=== PATIENT | female | born 1990 | race Hispanic/Latino ===

== ENCOUNTER 2025-06-09 11:45 | Inpatient (IN) | payer BC ==
[2025-06-09] MEDS ORDERED: Ondansetron PF 4 MG/2 ML Vial IVP PRN ×4 (12:46→17:16)
[2025-06-09] MEDS ORDERED: Famotidine/PF 20 mg/2ml Vial SLOW IVP PRN (12:46)
[2025-06-09] MEDS ORDERED: Bicitra 30 ML UDCUP PO PRN (12:46)
[2025-06-09] MEDS ORDERED: hydrALAZINE 20 MG/ML VIAL SLOW IVP PRN ×2 (12:49→17:04)
[2025-06-09] MEDS ORDERED: Calcium Gluc 4.6 MEQ/10 ML (100 MG/ML) SLOW IVP PRN (12:49)
[2025-06-09 13:11] LABS: #Basophils Less than 0.03 10x3/uL (0.0-0.2); #Eosinophils Less than 0.03 10x3/uL (0.0-0.5); #Monocytes 0.38 10x3/uL (0.0-1.1); #Neutrophils 4.81 10x3/uL (1.5-8.4); %Basophils 0.3 % (0.0-2.0); %Eosinophils 0.1 % (0.0-6.0); %Lymphocytes 30.8 % (18.0-47.0); %Monocytes 5.0 % (0.0-10.0); %Neutrophils 63.0 % (40.0-75.0); Hematocrit 29.2 % (34.9-44.5); Hemoglobin 10.0 g/dL (12.0-15.5); Mean Corpuscular Hemoglobin 27.5 pg (27.0-33.0); Mean Corpuscular Volume 80.4 fL (81.6-98.3); Platelet Count 221 10x3/uL (150-450); Red Blood Cell (RBC) Count 3.63 10x6/uL (3.90-5.03); White Blood Cell (WBC) Count 7.63 10x3/uL (3.5-10.5)
[2025-06-09] MEDS: hydrALAZINE 20 MG/ML VIAL SLOW IVP PRN ×2 (13:20→14:26)
[2025-06-09] MEDS: Magnesium Sulfate 20 gm/500 ml 20 GM/500 ML BAG IVPB SCH (13:25)
[2025-06-09 13:27] LABS: ALT (SGPT) 17 U/L (Less than 34); AST (SGOT) 28 U/L (11-34); Albumin 2.8 g/dL (3.1-4.5); Alkaline Phosphatase 94 U/L (40-110); Anion Gap 15 mmol/L (10-20); BUN (Urea Nitrogen) 17 mg/dL (7.0-18.7); Bilirubin, Total 0.1 mg/dL (0.3-1.2); Calc. Creatinine Clearance 0 mL/min (70-130); Calcium 9.0 mg/dL (7.8-10.44); Carbon Dioxide 17 mmol/L (22-29); Chloride 107 mmol/L (98-107); Globulin 3.9 g/dL (2.4-3.5); Glucose 192 mg/dL (70-105); Potassium 4.0 mmol/L (3.5-5.1); Sodium 135 mmol/L (136-145)
[2025-06-09 13:45] LABS: Syphilis Antibody Index 0.06 S/CO (<1.00 Non-Reactive)
[2025-06-09 13:46] LABS: Hep B Surf Ag - L&D Non-Reactive S/CO (NonReactive)
[2025-06-09 13:56] LABS: INR-International Normal Ratio 0.9; PTT 22.7 sec (22.0-33.0); Prothrombin Time 10.1 sec (9.5-12.1)
[2025-06-09 15:51] VITALS: BMI 38.7
[2025-06-09 17:00] LABS: Analyzer IN Cardio CS NICU; RapidComm Collect By OR NURSE
[2025-06-09 17:02] LABS: Analyzer IN Cardio CS NICU; RapidComm Collect By OR NURSE; pH (Cord, venous) 7.324 (7.250-7.350)
[2025-06-09] MEDS ORDERED: Acetaminophen 325 MG TAB PO PRN (17:04)
[2025-06-09] MEDS ORDERED: diphenhydrAMINE 25 MG CAP PO PRN (17:04)
[2025-06-09] MEDS ORDERED: diphenhydrAMINE 50 MG/ML VIAL IVP PRN (17:16)
[2025-06-09] MEDS ORDERED: Meperidine HCl/PF 25 MG (1 mL) VIAL SLOW IVP PRN (17:16)
[2025-06-09] MEDS ORDERED: Ketorolac Tromethamine 30 MG (1 mL) VIAL IVP SCH (17:30)
[2025-06-09] MEDS ORDERED: Dextrose 50% Abboject 50 ML SYRINGE SLOW IVP PRN (17:30)
[2025-06-09] MEDS ORDERED: Glucagon 1 MG/ML KIT IM PRN (17:30)
[2025-06-09] MEDS ORDERED: Communication Order-Pharmacy FS SCH (17:30)
[2025-06-09] MEDS: Oxytocin 30 units/NS 500 ML 500 ML IV SCH (18:19)
[2025-06-10 05:03] LABS: #Basophils Less than 0.03 10x3/uL (0.0-0.2); #Eosinophils Less than 0.03 10x3/uL (0.0-0.5); #Monocytes 0.69 10x3/uL (0.0-1.1); #Neutrophils 9.15 10x3/uL (1.5-8.4); %Basophils 0.1 % (0.0-2.0); %Eosinophils 0.0 % (0.0-6.0); %Lymphocytes 20.2 % (18.0-47.0); %Monocytes 5.6 % (0.0-10.0); %Neutrophils 73.6 % (40.0-75.0); Hematocrit 28.5 % (34.9-44.5); Hemoglobin 9.7 g/dL (12.0-15.5); Mean Corpuscular Hemoglobin 27.5 pg (27.0-33.0); Mean Corpuscular Volume 80.7 fL (81.6-98.3); Platelet Count 215 10x3/uL (150-450); Red Blood Cell (RBC) Count 3.53 10x6/uL (3.90-5.03); White Blood Cell (WBC) Count 12.42 10x3/uL (3.5-10.5)
[2025-06-10] MEDS ORDERED: Meperidine HCl/PF 25 MG (1 mL) VIAL IM PRN (05:30)
[2025-06-10 05:34] LABS: ALT (SGPT) 18 U/L (Less than 34); AST (SGOT) 31 U/L (11-34); Albumin 2.3 g/dL (3.1-4.5); Alkaline Phosphatase 86 U/L (40-110); Anion Gap 13 mmol/L (10-20); BUN (Urea Nitrogen) 14 mg/dL (7.0-18.7); Bilirubin, Total 0.2 mg/dL (0.3-1.2); Calc. Creatinine Clearance 183 mL/min (70-130); Calcium 7.1 mg/dL (7.8-10.44); Carbon Dioxide 18 mmol/L (22-29); Chloride 106 mmol/L (98-107); Globulin 3.4 g/dL (2.4-3.5); Glucose 131 mg/dL (70-105); Magnesium 6.1 mg/dL (1.6-2.6); Potassium 4.3 mmol/L (3.5-5.1); Sodium 133 mmol/L (136-145)
[2025-06-10] MEDS: Ketorolac Tromethamine 30 MG (1 mL) VIAL IVP PRN (11:08)
[2025-06-10] MEDS: Acetaminophen 500 MG TAB PO PRN (11:08)
[2025-06-10] MEDS: HYDROcodone/Acetaminophen 5/325 mg Tablet PO PRN (17:24)
[2025-06-10] MEDS: metFORMIN 500 MG TAB PO SCH (17:24)
[2025-06-10] MEDS: Ibuprofen 800 MG TAB PO SCH (21:20)
[2025-06-11] MEDS: Oxytocin 30 units/NS 500 ML 500 ML ONE (15:11)
[2025-06-11] MEDS: Carboprost 250 MCG/ML AMP ONE (15:11)
[2025-06-11] MEDS: Dexamethasone 10 MG/ML VIAL ONE (15:11)
[2025-06-11] MEDS: Tranexamic Acid 1,000 MG/10 ML VIAL ONE (15:11)
[2025-06-11] MEDS: Oxytocin 10 UNITS/ML VIAL ONE (15:11)
[2025-06-11] MEDS: Ondansetron PF 4 MG/2 ML Vial ONE (15:11)
[2025-06-11] MEDS: PHENYLEPHRINE-NS 100 MCG/ML 10 ML SYRINGE ONE (15:12)
[2025-06-11] MEDS: Hepatitis B Vaccine 10 MCG/0.5 ML SYR ONE (15:12)
[2025-06-11] MEDS: Erythromycin Base 0.5% Oint 1 GM TUBE ONE (15:12)
[2025-06-12] MEDS: Boostrix 0.5 ML (Tdap) VIAL (>/=7 yrs of age) IM ONE (07:10)
[2025-06-12] MEDS: HYDROcodone/Acetaminophen 5/325 mg Tablet PO PRN (12:39)
[2025-06-13] MEDS: Simethicone Chewable 80 MG TAB PO PRN (01:07)
[2025-06-13 16:06] VITALS: BP 149/88; TEMP 98.2
== END 2025-06-13 18:45 | disposition home or self-care (01) | DRG 783 ==
LOC: CSHLD/OP 11:45 → UNDOADMIN 13:35 → CSHLD 13:35 → CSHANTE 06-10 20:45
PROVIDERS: ADMIT Obstetrics & Gynecology; ATTEND Obstetrics & Gynecology
PROC: 10D00Z1 Extraction of Products of Conception, Low, Open Approach (ICD-10-PCS; principal; 2025-06-10)
PROC: 0UT70ZZ Resection of Bilateral Fallopian Tubes, Open Approach (ICD-10-PCS; 2025-06-10)
PROC: 4A1HXCZ Monitoring of Products of Conception, Cardiac Rate, External Approach (ICD-10-PCS; 2025-06-10)
DX: O34.211 Maternal care for low transverse scar from previous cesarean delivery (principal); O24.12 Pre-existing type 2 diabetes mellitus, in childbirth; O10.92 Unspecified pre-existing hypertension complicating childbirth; O14.14 Severe pre-eclampsia complicating childbirth; Z37.0 Single live birth; Z3A.34 34 weeks gestation of pregnancy; Z79.899 Other long term (current) drug therapy; Z79.84 Long term (current) use of oral hypoglycemic drugs; Z79.4 Long term (current) use of insulin
CPT/HCPCS: 36415; 36416; 51702; 80053; 82805; 83735; 85025; 85610; 85730; 86780; 86850; 86900; 86901; 87340; 88302; 88307; 99285; J0360; J1100; J1815; J1885; J2274; J2405; J2590; J3475

== ENCOUNTER 2025-06-16 11:43 | Inpatient (IN) | payer BC ==
[2025-06-16] MEDS ORDERED: Magnesium 2 GM/50 ML BAG (IN WATER) ONE (11:57)
[2025-06-16 12:17] LABS: #Basophils 0.03 10x3/uL (0.0-0.2); #Eosinophils 0.12 10x3/uL (0.0-0.5); #Monocytes 0.48 10x3/uL (0.0-1.1); #Neutrophils 5.43 10x3/uL (1.5-8.4); %Basophils 0.3 % (0.0-2.0); %Eosinophils 1.3 % (0.0-6.0); %Lymphocytes 32.1 % (18.0-47.0); %Monocytes 5.2 % (0.0-10.0); %Neutrophils 59.0 % (40.0-75.0); Hematocrit 24.9 % (34.9-44.5); Hemoglobin 7.9 g/dL (12.0-15.5); Mean Corpuscular Hemoglobin 27.0 pg (27.0-33.0); Mean Corpuscular Volume 85.0 fL (81.6-98.3); Platelet Count 346 10x3/uL (150-450); Red Blood Cell (RBC) Count 2.93 10x6/uL (3.90-5.03); White Blood Cell (WBC) Count 9.21 10x3/uL (3.5-10.5)
[2025-06-16 12:36] LABS: ALT (SGPT) 87 U/L (Less than 34); AST (SGOT) 92 U/L (11-34); Albumin 3.2 g/dL (3.1-4.5); Alkaline Phosphatase 67 U/L (40-110); Anion Gap 17 mmol/L (10-20); BUN (Urea Nitrogen) 19 mg/dL (7.0-18.7); Bilirubin, Total 0.3 mg/dL (0.3-1.2); Calc. Creatinine Clearance 0 mL/min (70-130); Calcium 9.0 mg/dL (7.8-10.44); Carbon Dioxide 20 mmol/L (22-29); Chloride 107 mmol/L (98-107); Globulin 4.0 g/dL (2.4-3.5); Glucose 149 mg/dL (70-105); Magnesium 1.7 mg/dL (1.6-2.6); Potassium 4.1 mmol/L (3.5-5.1); Sodium 140 mmol/L (136-145)
[2025-06-16] MEDS ORDERED: hydrALAZINE 20 MG/ML VIAL SLOW IVP PRN (13:55)
[2025-06-16] MEDS ORDERED: Calcium Gluc 4.6 MEQ/10 ML (100 MG/ML) SLOW IVP PRN (13:55)
[2025-06-16] MEDS ORDERED: Ondansetron PF 4 MG/2 ML Vial IVP PRN (13:55)
[2025-06-16] MEDS ORDERED: Melatonin 3 MG TAB PO PRN (13:55)
[2025-06-16] MEDS ORDERED: Calcium Carbonate 500 MG ChewTAB PO PRN (13:55)
[2025-06-16] MEDS: Magnesium Sulfate 20 gm/500 ml 20 GM/500 ML BAG IVPB SCH (14:00)
[2025-06-16] MEDS: NIFEdipine XL 30 MG ER.TAB PO SCH (14:49)
[2025-06-16] MEDS: Ibuprofen 800 MG TAB PO SCH (14:49)
[2025-06-16] MEDS: Acetaminophen 500 MG TAB PO PRN (14:49)
[2025-06-16] MEDS ORDERED: Glucagon 1 MG/ML KIT IM PRN (14:51)
[2025-06-16] MEDS ORDERED: Dextrose 50% Abboject 50 ML SYRINGE SLOW IVP PRN (14:51)
[2025-06-16 14:55] VITALS: BMI 35.8
[2025-06-16 16:56] LABS: Uric Acid 4.3 mg/dL (2.5-6.2)
[2025-06-16 17:04] LABS: #Basophils 0.03 10x3/uL (0.0-0.2); #Eosinophils 0.11 10x3/uL (0.0-0.5); #Monocytes 0.66 10x3/uL (0.0-1.1); #Neutrophils 5.97 10x3/uL (1.5-8.4); %Basophils 0.3 % (0.0-2.0); %Eosinophils 1.1 % (0.0-6.0); %Lymphocytes 28.7 % (18.0-47.0); %Monocytes 6.7 % (0.0-10.0); %Neutrophils 61.1 % (40.0-75.0); Hematocrit 23.8 % (34.9-44.5); Hemoglobin 7.8 g/dL (12.0-15.5); Mean Corpuscular Hemoglobin 27.7 pg (27.0-33.0); Mean Corpuscular Volume 84.4 fL (81.6-98.3); Platelet Count 342 10x3/uL (150-450); Red Blood Cell (RBC) Count 2.82 10x6/uL (3.90-5.03); White Blood Cell (WBC) Count 9.79 10x3/uL (3.5-10.5)
[2025-06-16 17:52] LABS: ALT (SGPT) 80 U/L (Less than 34); AST (SGOT) 83 U/L (11-34); Albumin 3.1 g/dL (3.1-4.5); Alkaline Phosphatase 71 U/L (40-110); Anion Gap 17 mmol/L (10-20); BUN (Urea Nitrogen) 15 mg/dL (7.0-18.7); Bilirubin, Total 0.3 mg/dL (0.3-1.2); Calc. Creatinine Clearance 181 mL/min (70-130); Calcium 8.1 mg/dL (7.8-10.44); Carbon Dioxide 19 mmol/L (22-29); Chloride 108 mmol/L (98-107); Globulin 3.8 g/dL (2.4-3.5); Glucose 146 mg/dL (70-105); Potassium 3.6 mmol/L (3.5-5.1); Sodium 140 mmol/L (136-145)
[2025-06-16] MEDS: Furosemide 20 MG (2 mL) VIAL SLOW IVP SCH (19:11)
[2025-06-16] MEDS: Magnesium Sulfate 20 gm/500 ml 20 GM/500 ML BAG ONE (19:23)
[2025-06-16] MEDS: Famotidine 20 MG TAB PO SCH (20:53)
[2025-06-16] MEDS ORDERED: Famotidine/PF 20 mg/2ml Vial SLOW IVP PRN (21:00)
[2025-06-17] MEDS ORDERED: HYDROcodone/Acetaminophen 5/325 mg Tablet PO PRN ×3 (05:55→14:23)
[2025-06-17] MEDS ORDERED: Furosemide 20 MG (2 mL) VIAL SLOW IVP SCH (06:00)
[2025-06-17 06:01] LABS: #Basophils 0.03 10x3/uL (0.0-0.2); #Eosinophils 0.12 10x3/uL (0.0-0.5); #Monocytes 0.56 10x3/uL (0.0-1.1); #Neutrophils 6.24 10x3/uL (1.5-8.4); %Basophils 0.3 % (0.0-2.0); %Eosinophils 1.3 % (0.0-6.0); %Lymphocytes 22.9 % (18.0-47.0); %Monocytes 6.1 % (0.0-10.0); %Neutrophils 68.0 % (40.0-75.0); Hematocrit 23.1 % (34.9-44.5); Hemoglobin 7.4 g/dL (12.0-15.5); Mean Corpuscular Hemoglobin 27.3 pg (27.0-33.0); Mean Corpuscular Volume 85.2 fL (81.6-98.3); Platelet Count 327 10x3/uL (150-450); Red Blood Cell (RBC) Count 2.71 10x6/uL (3.90-5.03); White Blood Cell (WBC) Count 9.18 10x3/uL (3.5-10.5)
[2025-06-17 06:17] LABS: ALT (SGPT) 86 U/L (Less than 34); AST (SGOT) 108 U/L (11-34); Albumin 3.0 g/dL (3.1-4.5); Alkaline Phosphatase 66 U/L (40-110); Anion Gap 11 mmol/L (10-20); BUN (Urea Nitrogen) 14 mg/dL (7.0-18.7); Bilirubin, Total 0.3 mg/dL (0.3-1.2); Calc. Creatinine Clearance 184 mL/min (70-130); Carbon Dioxide 24 mmol/L (22-29); Chloride 106 mmol/L (98-107); Globulin 3.3 g/dL (2.4-3.5); Glucose 143 mg/dL (70-105); Potassium 3.6 mmol/L (3.5-5.1); Sodium 137 mmol/L (136-145)
[2025-06-17] MEDS: Metoclopramide HCl 10 MG (2 mL) VIAL IVP SCH (06:19)
[2025-06-17] MEDS: diphenhydrAMINE 50 MG/ML VIAL IVP PRN (06:19)
[2025-06-17 06:24] LABS: Calcium 6.9 mg/dL (7.8-10.44)
[2025-06-17] MEDS: NIFEdipine XL 30 MG ER.TAB PO SCH (08:39)
[2025-06-17] MEDS ORDERED: NIFEdipine XL 60 MG ER.TAB PO SCH (09:00)
[2025-06-17] MEDS: Acetaminophen 500 MG TAB PO PRN (14:53)
[2025-06-17] MEDS: Ibuprofen 200 MG TAB PO PRN (15:30)
[2025-06-18 06:07] LABS: #Basophils Less than 0.03 10x3/uL (0.0-0.2); #Eosinophils 0.07 10x3/uL (0.0-0.5); #Monocytes 0.70 10x3/uL (0.0-1.1); #Neutrophils 5.11 10x3/uL (1.5-8.4); %Basophils 0.2 % (0.0-2.0); %Eosinophils 0.8 % (0.0-6.0); %Lymphocytes 32.0 % (18.0-47.0); %Monocytes 8.0 % (0.0-10.0); %Neutrophils 58.1 % (40.0-75.0); Hematocrit 23.3 % (34.9-44.5); Hemoglobin 7.4 g/dL (12.0-15.5); Mean Corpuscular Hemoglobin 27.1 pg (27.0-33.0); Mean Corpuscular Volume 85.3 fL (81.6-98.3); Platelet Count 323 10x3/uL (150-450); Red Blood Cell (RBC) Count 2.73 10x6/uL (3.90-5.03); White Blood Cell (WBC) Count 8.80 10x3/uL (3.5-10.5)
[2025-06-18 06:22] LABS: ALT (SGPT) 76 U/L (Less than 34); AST (SGOT) 80 U/L (11-34); Albumin 3.1 g/dL (3.1-4.5); Alkaline Phosphatase 68 U/L (40-110); Anion Gap 11 mmol/L (10-20); BUN (Urea Nitrogen) 16 mg/dL (7.0-18.7); Bilirubin, Total 0.3 mg/dL (0.3-1.2); Calc. Creatinine Clearance 175 mL/min (70-130); Calcium 7.4 mg/dL (7.8-10.44); Carbon Dioxide 25 mmol/L (22-29); Chloride 108 mmol/L (98-107); Globulin 3.3 g/dL (2.4-3.5); Glucose 101 mg/dL (70-105); Potassium 3.6 mmol/L (3.5-5.1); Sodium 140 mmol/L (136-145)
[2025-06-18] MEDS ORDERED: NIFEdipine XL 30 MG ER.TAB PO SCH (09:00)
[2025-06-18 10:43] LABS: ALT (SGPT) 84 U/L (Less than 34); AST (SGOT) 95 U/L (11-34); Albumin 3.3 g/dL (3.1-4.5); Alkaline Phosphatase 70 U/L (40-110); Anion Gap 13 mmol/L (10-20); BUN (Urea Nitrogen) 15 mg/dL (7.0-18.7); Bilirubin, Total 0.4 mg/dL (0.3-1.2); Calc. Creatinine Clearance 178 mL/min (70-130); Calcium 7.9 mg/dL (7.8-10.44); Carbon Dioxide 22 mmol/L (22-29); Chloride 108 mmol/L (98-107); Globulin 3.5 g/dL (2.4-3.5); Glucose 139 mg/dL (70-105); Potassium 3.6 mmol/L (3.5-5.1); Sodium 139 mmol/L (136-145)
[2025-06-18 17:48] LABS: ALT (SGPT) 83 U/L (Less than 34); AST (SGOT) 90 U/L (11-34)
[2025-06-19 08:29] VITALS: BP 138/79; TEMP 97.9
== END 2025-06-19 09:15 | disposition home or self-care (01) | DRG 776 ==
LOC: CSHERS 11:43 → CSHLD 12:46 → CSHPP 06-17 14:30 → OBSVTOIN 06-18 12:53
PROVIDERS: ADMIT Obstetrics & Gynecology; ATTEND Obstetrics & Gynecology
DX: O14.15 Severe pre-eclampsia, complicating the puerperium (principal); O24.93 Unspecified diabetes mellitus in the puerperium; R74.01 Elevation of levels of liver transaminase levels; E83.51 Hypocalcemia; Z87.891 Personal history of nicotine dependence; O99.285 Endocrine, nutritional and metabolic diseases complicating the puerperium
CPT/HCPCS: 36415; 36416; 80053; 82570; 83735; 84156; 84450; 84460; 84550; 85025; 93005; 93010; J1200; J1815; J1940; J2765; J3475